=== PATIENT | female | born 1960 | race Caucasian/White ===

== ENCOUNTER 2017-03-19 12:30 | Outpatient (CLI) | payer MEDICARE ==
[~2017-03-19 12:30] MED LIST: DENOSUMAB 60 MG/ML ML SQ ONE
[2017-03-19] MEDS ORDERED: DENOSUMAB 60 MG/ML ML SQ SCH (13:00)
== END 2017-03-19 12:32 ==
LOC: INF 12:30
PROVIDERS: ATTEND Family Medicine
DX: M81.8 Other osteoporosis without current pathological fracture (principal)
CPT/HCPCS: 96372; J0897

== ENCOUNTER 2017-04-23 12:50 | Outpatient (CLI) | payer MEDICARE, OTHER ==
--- NOTE | 2017-04-25 11:52 | HISTORY AND PHYSICAL REPORT ---
REFERRING PHYSICIAN: Dr. Randolph Armstrong Dear Dr. Armstrong: HISTORY OF PRESENT ILLNESS: I had the opportunity of seeing Steffany Lucas today as an outpatient at [facility]. Ms. Lucas is a somewhat unfortunate 56-year- old white female who presents with both neck and back pain. She has a history of what she describes as scleroderma and obstructive pulmonary disease with a long history of tobacco use. She was treated in [place] at a pain clinic and she had been on potent pain medication at that time. She is now off of pain medication and she is having complaints of both axial, cervical, and lumbar pain. She does not have symptoms of neurogenic claudication, spinal stenosis, or radiculopathy. She complains of axial neck and axial low back pain which is constant and without a great deal of improvement on Lyrica and Klonopin. She had what sounds like a cervical epidural injection placed at the [facility] in 2016. She said she had a paradoxical response with increased pain following that injection. Otherwise, she has been treated in [place] with only opiate pain medications. She has had several studies done in [place], [place], at [facility]. The treating physician was Dr. Wheeler. PAST MEDICAL HISTORY: 1. COPD. 2. Emphysema. 3. Basal cell carcinoma. 4. Rare skin disease on the back of her neck. 5. Morphea scleroderma. 6. Hypothyroidism. 7. Generalized chronic pain. 8. Osteoarthritis. 9. DJD. 10. Fibromyalgia. 11. Anxiety. 12. Depression. 13. Bipolar. 14. History of Hepatitis C. 15. Mitral valve prolapse. 16. Sleep apnea. PAST SURGICAL HISTORY: 1. Tonsillectomy. 2. Hysterectomy. 3. Teeth extraction. 4. Bladder slings x4. 5. Right carpal tunnel 6. Right eye removed. 7. Left cataract surgery. 8. Toenails removed. 9. Laceration repair of left leg. 10. Right leg/ankle fracture repair. 11. Surgery for varicose veins of bilateral lower extremities. 12. Broken nose repair. CURRENT MEDICATIONS: 1. Daliresp 500 mcg daily. 2. Ranitidine 300 mg daily. 3. Synthroid 112 mcg daily. 4. Lipitor 20 mg at bedtime. 5. Tizanidine 4 mg q.i.d. 6. HCTZ 25 mg daily. 7. Hydralazine 25 mg 3 times a day. 8. Prolia 60 mg subcutaneous injection every 6 months. 9. Coreg 12.5 mg b.i.d. 10. Inhaler q.i.d. 11. Incruse Ellipta 62.5 mcg inhaler daily. 12. Lotrel 10 to 40 mg daily. 13. Trazodone at bedtime. 14. Wellbutrin 100 mg t.i.d. 15. Ibuprofen 800 mg t.i.d. 16. Lyrica 150 mg t.i.d. 17. Klonopin 1 mg t.i.d. 18. OxyContin 10 mg b.i.d. 19. Promethazine 25 mg p.r.n. 20. Advair b.i.d. 21. Ventolin p.r.n. 22. Fish Oil. 23. Vitamin C. 24. Vitamin D. 25. Vitamin E. 26. Vitamin B. 27. Multivitamin. 28. Calcium. ALLERGIES: 1. Nitroglycerin. 2. Oxybutynin. SOCIAL HISTORY: Patient currently smokes 5 cigarettes per day. She denies alcohol use. She reports some marijuana use. She is . She is renting a room from her sister and [id number]. She is disabled due to multiple reasons. She went to school through the 12th grade. FAMILY HISTORY: Significant for hypertension, COPD, myocardial infarction, diabetes, arthritis, degenerative joint disease, hypertension, thyroid problems, arthritis, depression in multiple family members. REVIEW OF SYSTEMS: Positive for swelling in her hands and feet, bleeding, bruising, urinary incontinence, shortness of breath, stomach upset and vomiting, loss of bowel control, constipation, depression, anxiety, and headaches. PHYSICAL EXAMINATION: General: This is a white female who is appearing older than stated age. She is on oxygen and tachypneic. HEENT: Pupils are equal, round, and reactive to light and accommodation. Extraocular movements intact. No facial droop. Neck: There is full range of motion of the cervical spine. No evidence of adenopathy. Thyroid is nontender, no enlarged. Carotids are without bruits. Chest: Clear to auscultation bilaterally. Normal chest excursion. Heart: Regular rate and rhythm without murmur. Abdomen: Benign. Normoactive bowel sounds. Motor/sensory: Intact in the upper and lower extremities. Moves all extremities freely. Back: There is a positive assisted extension and extension rotation and reproducible pain and tenderness over the cervical and lumbar facets. Strength is 5/5 and equal in the upper extremities. Reflexes are 2+ and equal in the patellar tendon, Achilles tendon, biceps tendon, and brachioradialis. DIAGNOSTIC STUDIES: MRI imaging of the cervical spine reveals spondylolytic changes with disk osteophytes at C5-C6 and C6-C7, cervical spondylosis at multiple levels, worse at C5-C6 and C6-C7, and lumbar degenerative disk disease with spondylolytic changes at the facet joints bilaterally and globally in the lumbar spine with a disk bulge at L3-L4, L4-L5, and L5-S1. Mild degree of stenosis at T6-T7 and otherwise a normal nerve conduction study. ASSESSMENT: Cervical and lumbar spondylosis. No evidence of spinal stenosis or radiculitis. PLAN: I have explained to Ms. Lucas that there is no indication at this time for the use of potent opiate pain medications for back pain and that I would start her on Butrans 5 mcg patch today with the idea of increasing that dose up to 20 mcg q. 7 days. I would follow her up for cervical or lumbar medial branch blocks and possible radiofrequency neurolysis, as she has not had a response to any previous palliative steroid injection. Dr. Armstrong, thank you for allowing me to take part in the care of this nice lady and hopefully, we can get her some improvement. cc: Dr. Randolph GARY
== END 2017-04-23 13:30 ==
LOC: OUT 12:50
PROVIDERS: ATTEND Anesthesiology Pain Medicine
DX: M47.892 Other spondylosis, cervical region (principal); M47.896 Other spondylosis, lumbar region
CPT/HCPCS: 99214; G0463

== ENCOUNTER 2017-05-30 14:03 | Outpatient (CLI) | payer MEDICARE, OTHER ==
[2017-05-30 23:11] LABS: TOTAL PROTEIN 7.4 g/dL (6.0-8.5)
== END 2017-05-30 14:04 ==
LOC: LAB 14:03
PROVIDERS: ATTEND Family Medicine
DX: E78.5 Hyperlipidemia, unspecified (principal); J43.1 Panlobular emphysema; E05.90 Thyrotoxicosis, unspecified without thyrotoxic crisis or storm
CPT/HCPCS: 36415; 80053; 80061; 84439; 84443; 84481

== ENCOUNTER 2017-07-02 09:33 | Outpatient (CLI) | payer MEDICARE, OTHER ==
[~2017-07-02 09:33] MED LIST changes: +BUPIVACAINE HCL/EPINEPHRINE/PF 0.25% VIAL IM ONE; -DENOSUMAB 60 MG/ML ML SQ ONE; +KETAMINE HCL 200 MG/20 ML VIAL ONE; +LIDOCAINE HCL/PF 2% 100 MG/5 ML VIAL IJ ONE; +Lidocaine 1% 5ml(IM or SUTURE)(PAIN CLINIC) ONE; +NORMAL SALINE 500 ML IV.SOLN IV ONE; +PROPOFOL 200 MG/20 ML VIAL IV ONE; +SALINE FLUSH 10 ML DISP.SYRIN IVF ONE; +TRIAMCINOLONE ACETONID 40MG/ML VIAL ONE
--- NOTE | 2017-07-03 15:09 | CERVICAL MEDIAL BRANCH BLOCKS ---
SUBJECTIVE: I had the opportunity of seeing Chio Lucas today in follow up in clinic. This is a very nice 57-year-old white female who presents with cervicalgia, neck pain. She was started on a Butrans patch 5 mcg and she says it is helping. She comes in and has primarily symptoms of spondylolytic neck pain and is scheduled for cervical facet medial branch blocks. She has pain behind the ears in the post occipital region as well. Plan for bilateral C3, C4, and C5 facet medial branch blocks today under fluoroscopic. PROCEDURE: Bilateral C3-C4 and C4-C5 cervical facet joint medial branch blocks with fluoroscopy guidance. DESCRIPTION OF PROCEDURE: The risks and benefits of today's injections were discussed with the patient, including the risk of infection, bleeding, seizure, increased neck or arm pain, and nerve injury including paralysis, and headache. Furthermore, I discussed the risk of steroid exposure causing hyperglycemia, hypertension, osteoporosis, or increased infectious risks. The patient understood these risks and agreed to proceed. Consent was obtained. The patient was placed in the prone position on the fluoroscopy table with a pillow supporting the head and maintaining a neutral cervical spine position. The patient's posterior neck was cleaned and a sterile drape was applied. An AP fluoroscopic view of the C3 vetebra was obtained. Under direct fluoroscopic guidance, a 25-gauge Quincke tip spinal needle was inserted in an AP direction until it contacted the lateral aspect of the left C3 articular pillar at the midpoint (the "waist"). The position of the needle was verified with AP and lateral fluoroscopic views. It was verified that there was no aspiration of CSF or blood. At this point, Omnipaque 240 myelogram dye was injected through the needle. It was verified with fluoroscopic views that the dye was located along the lateral aspect of the articular pillar of the site of the medial nerve branch of the dorsal ramus innervating the facet joints. At this point, the medication was injected. The stylet was replaced in the needle and the needle was removed from the neck. The exact procedure was repeated at the right C3 articular pillar, bilateral C4 articular pillars, and bilateral C5 articular pillars, (for a total of 6 medial nerve branches blocked). The patient noted significant immediate relief. The neck was cleaned and a bandage was applied over the injection site. The patient tolerated the procedure well and was monitored afterwards for a total of 20 minutes during which time the vital signs remained stable. The patient experienced no adverse sequelae and was discharged home in good condition. Prior to discharge the patient was given discharge instructions. ASSESSMENT: Cervical spondylosis. PLAN: Bilateral C3-C4 and C4-C5 cervical facet joint medial branch blocks with fluoroscopy guidance. FOLLOW UP: Return to clinic if problems develop or worsen. cc: Dr. Randolph GARY
== END 2017-07-02 09:34 ==
LOC: OUT 09:33
PROVIDERS: ATTEND Anesthesiology Pain Medicine
DX: M47.812 Spondylosis without myelopathy or radiculopathy, cervical region (principal)
CPT/HCPCS: 64490; 64491; 64492; 99214; G0463; J2001; J2704; J3301; J7060; Q9966; S1016

== ENCOUNTER 2017-07-15 23:00 | Emergency (ER) | payer MEDICARE, OTHER ==
--- NOTE | 2017-07-15 23:25 | ED Physician Documentation ---
General Adult - HISTORIAN Historian: patient - HPI Chief Complaint: General Adult Onset: days ago Further Comments: yes (57 year old female patient presents with complaints of finger tips dry and split. Has been cleaning in her apartment. Has not used any lotions. Has used betadine to clean splits.) - ROS CONST: no problems EYES/ENT: none CVS/RESP: none GI/: none MS/SKIN/LYMPH: none NEURO/PSYCH: denies: headache - PAST HX Past History: none (See scanned in history sheet), other (O2 at 3L NC) Allergies/Adverse Reactions: Allergies Allergy/AdvReac Type Severity Reaction Status Date / Time nitroglycerin Allergy Anaphylaxis Verified 07/15/17 23:21 oxybutynin chloride Allergy Rash Verified 07/15/17 23:21 [From Ditropan] - SOCIAL HX Smoking History: cigarettes Drug Use: marijuana - FAMILY HX Family History: No - REVIEWED ASSESSMENTS Nursing Assessment Reviewed: Yes Vitals Reviewed: Yes Progress - Progress Progress: Instructed patient to use thick coat of lubriderm or aquaform on hands and sleep with gloves on. Patient states she does not have money for lotion. Encouraged patient to use vaseline. Wear gloves for cleaning. Do not get any chemicals on hands. Use vaseline or lotion multiple times a day Patient requested finger covers and pain shot at discharge. Explained we did not have finger covers. Offer tylenol, patient refused. Explained I could not safely prescribe pain medication as patient reported frequently using marijuana for pain; instructed patient to stop using marijuana, explained it could cause severe adverse reactions with her prescription medications. Educated patient on "emergency" use of ER. General Adult Physical Exam - PHYSICAL EXAM GENERAL APPEARANCE: mild distress SKIN: warm/dry, normal color, other (Xerosis noted on hands, multiple finger tips split, betadine noted in wounds. ) EXTREMITIES: non-tender, normal range of motion NEURO: oriented X3, motor nml, sensation nml, mood/affect nml Discharge Clincal Impression: Xerosis of skin Referrals: Randolph Armstrong MD [Primary Care Provider] - 2 Days Additional Instructions: Use thick coat of lubriderm or aquafor on hands and sleep with gloves on. May use Vaseline, Lubriderm or aquafor Wear gloves for cleaning. Do not get any chemicals on hands. Use vaseline or lotion multiple times a day Follow up with Dr Armstrong in 2 days. Condition: Stable Disposition: 01 HOME, SELF-CARE Decision to Admit: NO Decision Time: 23:29
[2017-07-15 23:30] VITALS: BP 156/65
== END 2017-07-15 23:40 | disposition home or self-care (01) ==
LOC: ED 23:00
DX: L85.3 Xerosis cutis (principal)
CPT/HCPCS: 99283

== ENCOUNTER 2017-08-01 16:16 | Outpatient (CLI) | payer MEDICARE, OTHER ==
[2017-08-01 16:55] LABS: BASOPHILS % 0.8 (0.0-1.5); MEAN CORPUSCULAR HEMOGLOBIN 29.7 pg (28.0-34.0); MEAN CORPUSCULAR VOLUME 91.9 fl (80.0-100.0); MONOCYTES % 4.9 % (0.0-11.0); NEUTROPHILS # 4.1 # k/uL (1.4-7.7)
--- NOTE | 2017-08-01 17:09 | Diagnostic Imaging Report ---
[facility] [place] [facility] [address] [facility] [address] [address] Report Submission Date: Aug 01, 2017 5:06:36 PM PENAL OFFICER Patient Study Name: ANDREW CAMARILLO Date: Aug 01, 2017 4:30:38 PM PENAL OFFICER Modality Type: CR Gender: F Description: CHEST,ABDOMEN : 64 Institution: [facility] [place] [facility] Physician: SASHA DEE Examination: Obstruction series History: Abdominal discomfort Findings: 4 views obtained of the chest and abdomen. Single view the chest demonstrates emphysematous changes. No focal consolidative process or blunting of the costophrenic margins. No abnormal dilation of the large or small bowel. Air and stool throughout the large bowel. No suspicious calcification projecting over the renal fossa or the lower pelvic region. Osseous structures are appropriate for age. Impression: Emphysematous changes. No acute pulmonary process. No obstruction. No suspicious calcifications by plain film sensitivity. Electronically signed on Aug 01, 2017 5:06:36 PM PENAL OFFICER by: Solis GARY
[2017-08-01 17:20] LABS: eGFR (African) > 60; eGFR (Non-African) > 60
== END 2017-08-01 16:17 ==
LOC: LAB 16:16
PROVIDERS: ATTEND Family Medicine
DX: R10.84 Generalized abdominal pain (principal)
CPT/HCPCS: 36415; 74022; 80053; 83690; 85025

== ENCOUNTER 2017-09-19 12:37 | Outpatient (CLI) | payer MEDICAID, OTHER ==
[2017-09-19 12:56] LABS: BASOPHILS % 0.3 (0.0-1.5); EOSINOPHILS % 1.1 % (0.0-6.8); MEAN CORPUSCULAR VOLUME 93.8 fl (80.0-100.0); MONOCYTES % 5.2 % (0.0-11.0); NEUTROPHILS # 6.2 # k/uL (1.4-7.7)
[2017-09-19 13:07] LABS: eGFR (African) > 60; eGFR (Non-African) > 60
--- NOTE | 2017-09-19 13:57 | Diagnostic Imaging Report ---
SASHA DEE [facility] [address] [facility] [address] Report Submission Date: Sep 19, 2017 1:55:46 PM MEAT WASHER Patient Study Name: ANDREW CAMARILLO Date: Sep 19, 2017 1:11:36 PM MEAT WASHER Modality Type: CR Gender: F Description: CHEST : 64 Institution: [facility] Physician: SASHA DEE Examination: PA and lateral chest. History: Evaluate lung neri. Comparison exam: None provided. Findings: PA lateral chest demonstrate a normal cardiac and mediastinal silhouette. Vascular calcifications aortic arch. Chronic appearing interstitial changes. No focal infiltrate. No blunting of the costophrenic margins. Osseous structures are appropriate for age. Impression: Chronic interstitial changes. No acute appearing pulmonary process. Electronically signed on Sep 19, 2017 1:55:46 PM MEAT WASHER by: Solis GARY
--- NOTE | 2017-09-19 13:57 | Diagnostic Imaging Report ---
SHANNON GEORGE [facility] [address] [facility] [address] [place] [address]. [address] Report Submission Date: Sep 19, 2017 1:54:18 PM OFFICE CORRESPONDENT Patient Study Name: ANDREW CAMARILLO Date: Sep 19, 2017 1:14:28 PM OFFICE CORRESPONDENT Modality Type: CR Gender: F Description: SPINE : 64 Institution: [facility] Physician: SHANNON GEORGE Examination: Cervical spine History: Neck discomfort. Comparison exams: None available Findings: 3 views of the cervical spine demonstrate normal height and alignment. No anterior compression. No abnormal listhesis. Few scattered osteophytes. No odontoid abnormality. No prevertebral abnormality Impression: No acute appearing osseous abnormality. If patient is experiencing neurologic symptoms, consider obtaining MRI to further evaluate. Electronically signed on Sep 19, 2017 1:54:18 PM OFFICE CORRESPONDENT by: Solis GARY
--- NOTE | 2017-09-19 13:58 | Diagnostic Imaging Report ---
SHANNON GEORGE [facility] [address] [facility] [address] [address] Report Submission Date: Sep 19, 2017 1:57:06 PM EVENT STAFF MEMBER Patient Study Name: ANDREW CAMARILLO Date: Sep 19, 2017 1:32:36 PM EVENT STAFF MEMBER Modality Type: CR Gender: F Description: SPINE : 64 Institution: [facility] Physician: SHANNON GEORGE Examination: Plain film lumbar spine History: Back discomfort Findings: 5 views of the lumbar spine demonstrate normal height. No anterior compression. Oblique views without pars abnormality. No soft tissue abnormalities. Impression: No acute osseous process. If patient is experiencing neurologic symptoms, consider obtaining MRI to further evaluate. Electronically signed on Sep 19, 2017 1:57:06 PM EVENT STAFF MEMBER by: Solis GARY
== END 2017-09-19 12:40 ==
LOC: RAD 12:37
PROVIDERS: ATTEND Family Medicine
DX: R05 Cough (principal); M54.2 Cervicalgia; M54.5 Low back pain
CPT/HCPCS: 36415; 71020; 72040; 72110; 80053; 85025

== ENCOUNTER 2017-10-24 08:48 | Outpatient (CLI) | payer MEDICAID, OTHER ==
[2017-10-24] MEDS ORDERED: DENOSUMAB 60 MG/ML ML SQ ONE (09:00)
[2017-10-24] MEDS ORDERED: DENOSUMAB 60 MG/ML ML SQ SCH (09:00)
== END 2017-10-24 08:50 ==
LOC: INF 08:48
PROVIDERS: ATTEND Family Medicine
DX: M81.8 Other osteoporosis without current pathological fracture (principal)
CPT/HCPCS: 96372; J0897

== ENCOUNTER 2017-11-27 09:07 | Outpatient (CLI) | payer MEDICARE, OTHER ==
--- NOTE | 2017-11-30 09:53 | PAIN CLINIC PROGRESS NOTES ---
REASON FOR VISIT: I had the opportunity of following up with Steffany Lucas. This is a 57-year- old markedly debilitated white female who has cervicalgia, neck pain and had a paradoxic response to an epidural injection at [facility]. I treated her with cervical facets which she got no immediate or long-term improvement. She failed on tramadol and gabapentin. She was started on Wellbutrin and has a rash on her skin. At this point, I am attempting to not restart her on oxycodone, as oxycodone has been labeled as contraindicated for axial neck and back pain. In light of that reality, I would like to get approval to start this nice lady on Belbuca 150 mcg orally every 24 hours with a target of between 300 mcg and 450 mcg a day. She will need to get approval from her insurance provider for this medication and I have told her such. PLAN: I will be glad to follow her up next month and see if we can adjust her dose to a schedule 3 medication that can be easily managed and refilled. I do not have any further interventional treatment that would be available for her neck pain, and I do not think she is a good candidate for interventional pain therapy. Dr. Armstrong, thank you very much, again, for allowing me to take part in the care of this nice lady and I will work to get her on a medication regime that will control her symptoms. cc: Dr. Randolph GARY
== END 2017-11-27 09:10 ==
LOC: OUT 09:07
PROVIDERS: ATTEND Anesthesiology Pain Medicine
DX: M54.2 Cervicalgia (principal); R21 Rash and other nonspecific skin eruption; G97.1 Other reaction to spinal and lumbar puncture
CPT/HCPCS: 99213; 99214; G0463

== ENCOUNTER 2017-12-25 13:11 | Outpatient (CLI) | payer MEDICARE, OTHER ==
--- NOTE | 2017-12-27 11:06 | PAIN CLINIC PROGRESS NOTES ---
REASON FOR VISIT: Ms. Lucas is a 57-year-old white female who is markedly debilitated. She comes in with multiple complaints of aching all over, joint pain, neck pain, and low back pain. She tells me she is being treated for scleroderma and is going to start on methotrexate once an approval is made between her construction laborer and her cylinder inspector. She has been on potent opioids in the past and I have gotten her on a buprenorphine regime of Belbuca 150 mcg daily, which I am going to start her on an every 12 hour 150 mcg dosing. She has been on Butrans patches and also done well but they had to be stopped because of a skin rash. ASSESSMENT: 1. Fibromyalgia. 2. Polymyositis. 3. Osteoarthritis. 4. Degenerative joint disease. 5. History of opiate tolerance. 6. Polypharmacy. PLAN: I am not going to prescribe OxyContin, oxycodone, hydrocodone, or Duragesic patches and I have made this very clear that we want to stay within CMS Guidelines; and therefore, I am going to need to obtain a prior authorization so this patient can get the pain medication that she needs through her insurance provider, which fits the CMS Care Guidelines as a safe opiate without risk to the patient or the population. She is in agreement today. I am also going to prescribe a soft collar for her neck, seek to obtain an MRI of the cervical spine, and lastly, refill p.r.n. tramadol. She is in agreement. I have been very clear with what our plan is for her prescription medications. I do not think this patient is a candidate for interventional pain treatment at this time. I spent 20 minutes of time today with Ms. Lucas and the majority of that time was spent in direct discussion of the patient's underlying problems and treatment options. cc: Dr. Randolph GARY
== END 2017-12-25 13:13 ==
LOC: OUT 13:11
PROVIDERS: ATTEND Anesthesiology Pain Medicine
DX: M79.7 Fibromyalgia (principal); M33.93 Dermatopolymyositis, unspecified without myopathy; M19.91 Primary osteoarthritis, unspecified site; M19.90 Unspecified osteoarthritis, unspecified site; T88.7XXS Unspecified adverse effect of drug or medicament, sequela; Y99.9 Unspecified external cause status
CPT/HCPCS: 99213; 99214; G0463

== ENCOUNTER 2018-03-12 09:14 | Outpatient (CLI) | payer MEDICARE, OTHER ==
--- NOTE | 2018-03-13 07:04 | Diagnostic Imaging Report ---
SASHA DEE [facility] [address] [facility] [address] [address] Report Submission Date: Mar 12, 2018 10:26:03 AM CDT Patient Study Name: ANDREW CAMARILLO Date: Mar 12, 2018 9:28:40 AM CDT Modality Type: US Gender: O Description: : Institution: [facility] [place] [facility] Physician: SASHA DEE Examination: Ultrasound pelvis History: Pelvic discomfort. 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 No adnexal abnormality. Bladder margins without gross abnormality. Bilateral ureteral jets. Mild post void residual. Impression: No evidence for pelvic mass or lesion. Electronically signed on Mar 12, 2018 10:26:03 AM CDT by: Solis GARY
== END 2018-03-12 09:16 ==
LOC: RAD 09:14
PROVIDERS: ATTEND Family Medicine
DX: R33.9 Retention of urine, unspecified (principal)
CPT/HCPCS: 76705

== ENCOUNTER 2018-04-04 16:11 | Outpatient (CLI) | payer MEDICARE, OTHER ==
[2018-04-04 16:41] LABS: BASOPHILS % 0.3 (0.0-1.5); EOSINOPHILS % 3.1 % (0.0-6.8); MEAN CORPUSCULAR HEMOGLOBIN 30.4 pg (28.0-34.0); MEAN CORPUSCULAR VOLUME 87.7 fl (80.0-100.0); NEUTROPHILS # 5.2 # k/uL (1.4-7.7)
[2018-04-04 17:40] LABS: eGFR (African) > 60; eGFR (Non-African) > 60
== END 2018-04-04 16:13 ==
LOC: LABRHC 16:11
PROVIDERS: ATTEND Family Medicine
DX: A08.4 Viral intestinal infection, unspecified (principal)
CPT/HCPCS: 80053; 85025

== ENCOUNTER 2018-05-02 13:27 | Outpatient (CLI) | payer MEDICARE, OTHER ==
[2018-05-02] MEDS ORDERED: DENOSUMAB 60 MG/ML SYRINGE SQ ONE (13:30)
== END 2018-05-02 13:33 | disposition home or self-care (01) ==
LOC: INF 13:27
PROVIDERS: ATTEND Family Medicine
DX: M81.8 Other osteoporosis without current pathological fracture (principal)
CPT/HCPCS: 96372; J0897

== ENCOUNTER 2018-05-28 09:32 | Outpatient (CLI) | payer MEDICARE, OTHER | END 2018-05-28 09:33 | LOC: RAD 09:32 | PROVIDERS: ATTEND Family Medicine | DX: R33.9 Retention of urine, unspecified (principal); M81.0 Age-related osteoporosis without current pathological fracture | CPT/HCPCS: 77080 ==

== ENCOUNTER 2019-05-13 13:58 | Outpatient (CLI) | payer MEDICARE, OTHER ==
[2019-05-13] MEDS ORDERED: DENOSUMAB (NF) 60 MG/ML SYRINGE SQ ONE (15:00)
== END 2019-05-13 14:15 | disposition home or self-care (01) ==
LOC: INF 13:58
PROVIDERS: ATTEND Family Medicine
DX: M81.8 Other osteoporosis without current pathological fracture (principal)
CPT/HCPCS: J0897